=== PATIENT | female | born 1980 | race Caucasian/White ===

== ENCOUNTER → 2016-05-21 | Outpatient (CLI) | payer OTHER ==
[~2016-05-21] MED LIST: CIPR1TAB11 PO; MULT-506 PO; PANT40TA PO; SERT-234 PO
[2016-05-21 12:12] LABS: BASO % 0.2 %; BASO ABS # 0.01 K/uL (0-0.2); COMPLETE YES; EOS % 1.9 %; HEMATOCRIT 38.8 % (37-47); IG% 0.2 %; LYMPH % 27.3 %; LYMPH ABS # 1.61 K/uL (1.2-3.4); MEAN CELL VOLUME 86.2 fL (80-100); MEAN CORPUSCULAR HEMOGLOBIN 28.4 pg (25-34); MEAN PLATELET VOLUME 10.3 fL (7.4-10.4); MONO % 8.7 %; NEUT % 61.7 %; PLATELET COUNT 325 K/uL (130-400); WHITE BLOOD COUNT 5.89 K/uL (4.8-10.8)
[2016-05-21 12:20] LABS: ALT/SGPT 19 U/L (12-78); BLOOD UREA NITROGEN 9 mg/dl (7-18); BUN/CREATININE RATIO 16.5 (10-20); CALCIUM 9.2 mg/dl (8.5-10.1); CARBON DIOXIDE 27 mmol/L (21-32); CHLORIDE 103 mmol/L (98-107); CREATININE 0.52 mg/dl (0.60-1.20); GLUCOSE 84 mg/dl (70-99); POTASSIUM 3.9 mmol/L (3.5-5.1); SODIUM 137 mmol/L (136-145)
[2016-05-21 12:22] LABS: ALB/GLOB RATIO 1.1 (0.9-2); ALKALINE PHOSPHATASE 91 U/L (45-117); AST/SGOT 16 U/L (15-37)
[2016-05-26 06:30] LABS: IGA SERUM 193 mg/dL (81-463); TIS TRANS IGA 1 U/mL (<4)
== END | disposition home or self-care (01) ==
LOC: C.LAB1850 10:55
PROVIDERS: ATTEND Registered Nurse
DX: R19.4 Change in bowel habit (principal); R74.8 Abnormal levels of other serum enzymes; R10.31 Right lower quadrant pain

== ENCOUNTER → 2016-05-24 | Outpatient (CLI) | payer OTHER ==
--- NOTE | 2016-05-24 11:59 | DIAGNOSTIC IMAGING REPORT ---
ABDOMEN COMPLETE (US) CLINICAL HISTORY: Dominant bloating, change in bowel habits. Right lower quadrant abdominal pain COMPARISON STUDY: 08/27/2015 FINDINGS: There is slight increase in hepatic echogenicity, finding which may indicate hepatic steatosis. No focal hepatic masses are visualized. The spleen measures 10.8 cm in length. No splenic masses are visualized. The gallbladder surgically absent. The pancreas appears sonographically normal. The right kidney measures 9.6 cm in length. The left kidney measures 9.9 cm in length. No focal renal masses are visualized. There is no hydronephrosis. There is no abdominal aortic dilatation. No abnormality IVC are visualized. The common bile duct measures 7 mm. IMPRESSION: Surgically absent gallbladder. 7 mm common bile duct. Possible hepatic steatosis. Electronically signed by: Garry Guillen M.D. 05/24/2016 11:57 AM Dictated Date/Time: 05/24/2016 11:55 AM
== END | disposition home or self-care (01) ==
LOC: C.ULTR 11:13
PROVIDERS: ATTEND Registered Nurse
DX: R14.0 Abdominal distension (gaseous) (principal); R19.4 Change in bowel habit; R74.8 Abnormal levels of other serum enzymes; R10.31 Right lower quadrant pain; Z90.49 Acquired absence of other specified parts of digestive tract

== ENCOUNTER → 2016-06-18 | Outpatient (CLI) | payer OTHER ==
[~2016-06-18] MED LIST changes: +OPTIRAY 320 IV PRN
--- NOTE | 2016-06-18 15:19 | DIAGNOSTIC IMAGING REPORT ---
CT UROGRAM CLINICAL HISTORY: Gross hematuria. COMPARISON STUDY: Abdominal ultrasound dated 05/24/2016. TECHNIQUE: Before and following the IV administration of 93 cc of Optiray 320, CT urogram of the abdomen and pelvis is performed from the lung bases to the proximal femora. Images are reviewed in the axial, sagittal, and coronal planes. IV contrast was administered without complication. CT DOSE: 1783.42 mGycm FINDINGS: Lung bases: The heart is normal in size and without pericardial effusion. There is a 2 mm pulmonary nodule at the right lung base seen on image #75. A 3 mm pleural-based nodule is seen in the right middle lobe on image #27. These are of doubtful significance in this age group. Lung bases are otherwise clear. Liver: The contrast-enhanced liver is normal in size, contour, and attenuation. There is minimal central intrahepatic biliary ductal dilatation. The hepatic veins and portal veins are patent. Gallbladder: Surgically absent noting clips in the gallbladder fossa. Spleen: Normal in size and attenuation. Pancreas: Unremarkable. Adrenal glands: Unremarkable. Kidneys and ureters: The contrast enhanced kidneys are normal in size and without hydronephrosis. There are no renal calculi identified on the unenhanced images. The kidneys enhance and excrete symmetrically. A 1.1 cm cyst is identified in the left upper pole. There is no enhancing renal cortical mass lesion identified. There is no evidence of urothelial lesion within the renal pelvis bilaterally or along the course of either ureter. Abdominal vasculature: The abdominal aorta is normal in course and caliber. Bowel: The small bowel and colon are normal in course and caliber. The appendix is well-visualized and normal. Peritoneum: There is no intraperitoneal free air or abdominal ascites. There is a small fat-containing umbilical hernia. Lymphadenopathy: None. Pelvic viscera: The bladder is normal as visualized. The uterus is surgically absent. There are left ovarian follicles measure up to 3.1 cm. There is trace free fluid in the cul-de-sac. Skeletal structures: No destructive bony lesions are seen. IMPRESSION: 1. Unremarkable CT urogram. 2. There are no acute infectious or inflammatory findings in the abdomen or pelvis. 3. There is trace and likely physiologic free fluid in the cul-de-sac. 4. Additional findings as above. Electronically signed by: Kayden Smith M.D. 06/18/2016 3:17 PM Dictated Date/Time: 06/18/2016 3:11 PM
== END | disposition home or self-care (01) ==
LOC: C.CTS 11:33
PROVIDERS: ATTEND Nurse Practitioner Family
DX: R10.2 Pelvic and perineal pain (principal); R31.0 Gross hematuria; R10.31 Right lower quadrant pain

== ENCOUNTER → 2016-08-24 | Outpatient (CLI) | payer OTHER ==
[~2016-08-24] MED LIST changes: -OPTIRAY 320 IV PRN
== END | disposition home or self-care (01) ==
LOC: C.PATHSPEC 17:08
PROVIDERS: ATTEND Urology
DX: R31.29 Other microscopic hematuria (principal)

== ENCOUNTER → 2017-05-17 | Outpatient (CLI) | payer OTHER ==
[2017-05-17 13:07] LABS: BASO % 0.2 %; BASO ABS # 0.01 K/uL (0-0.2); EOS % 2.7 %; EOS ABS # 0.17 K/uL (0-0.5); HEMATOCRIT 42.6 % (37-47); HEMOGLOBIN 14.4 g/dL (12.0-16.0); LYMPH % 30.3 %; LYMPH ABS # 1.88 K/uL (1.2-3.4); MEAN CORPUSCULAR HEMOGLOBIN 31.1 pg (25-34); MEAN CORPUSCULAR HGB CONC 33.8 g/dl (32-36); MEAN PLATELET VOLUME 9.8 fL (7.4-10.4); MONO % 11.8 %; MONO ABS # 0.73 K/uL (0.11-0.59); NEUT ABS # 3.42 K/uL (1.4-6.5); PLATELET COUNT 267 K/uL (130-400); RED CELL DISTRIBUTION WIDTH CV 13.6 % (11.5-14.5); RED CELL DISTRIBUTION WIDTH SD 45.4 fL (36.4-46.3); WHITE BLOOD COUNT 6.21 K/uL (4.8-10.8)
[2017-05-17 13:55] LABS: ALT/SGPT 28 U/L (12-78); BLOOD UREA NITROGEN 10 mg/dl (7-18); CALCIUM 8.8 mg/dl (8.5-10.1); CARBON DIOXIDE 27 mmol/L (21-32); CREATININE 0.52 mg/dl (0.60-1.20); GLUCOSE 83 mg/dl (70-99); SODIUM 136 mmol/L (136-145)
[2017-05-17 14:06] LABS: ALKALINE PHOSPHATASE 65 U/L (45-117); AST/SGOT 20 U/L (15-37); TOTAL PROTEIN 7.7 gm/dl (6.4-8.2)
== END | disposition home or self-care (01) ==
LOC: C.LABPBG 08:36
PROVIDERS: ATTEND Physician Assistant
DX: R53.83 Other fatigue (principal); E55.9 Vitamin D deficiency, unspecified

== ENCOUNTER → 2017-05-20 | Outpatient (CLI) | payer OTHER ==
--- NOTE | 2017-05-20 14:46 | DIAGNOSTIC IMAGING REPORT ---
ABDOMEN AND PELVIS CT WITHOUT CONTRAST CT DOSE: 537.74 mGy.cm HISTORY: Acute right lower quadrant and periumbilical abdominal pain R10.31 Right lower quadrant abdominal painR10.33 Umbilical pain TECHNIQUE: Multiaxial CT images of the abdomen and pelvis were performed without contrast. A dose lowering technique was utilized adhering to the principles of ALARA. COMPARISON STUDY: CT abdomen and pelvis 06/18/2016. FINDINGS: Minimal subsegmental bibasilar atelectasis/scarring, notably within the inferior segment lingula and right middle lobe. 4 mm solid nodule of the basal right lower lobe appears unchanged and is likely benign. No pneumatosis or pneumoperitoneum identified. Imaged inferior cardiac chambers are unremarkable. Evaluation of the solid abdominal organs is limited without use of IV contrast. Within the limitations of the exam, the liver, spleen, pancreas and adrenal glands are within normal limits. Prior cholecystectomy. Kidneys, ureters and urinary bladder are within normal limits without renal calculi or obstructive uropathy. Prior hysterectomy. Cystic lesion of the left adnexum appears measures up to 3.5 x 3.2 cm, overall cystic changes of the left adnexum have decreased from comparison. Linear hyperattenuating material along the inferior portion of left adnexum is unchanged suggesting postsurgical changes. Aorta is unremarkable without aneurysm. No bulky adenopathy. No bowel obstruction or focal bowel wall thickening. Normal appendix. Soft tissues are within normal limits. Small fat filled periumbilical hernia, diastases 1.2 cm. Bones appear intact. IMPRESSION: 1. No acute intra-abdominal or intrapelvic abnormality identified. Normal appendix. 2. Small fat filled periumbilical hernia. 3. Prior cholecystectomy and hysterectomy. 4. 3.5 cm cystic lesion of the left adnexum suggests ovarian cyst. Electronically signed by: Angel May M.D. 05/20/2017 2:44 PM Dictated Date/Time: 05/20/2017 2:37 PM
== END | disposition home or self-care (01) ==
LOC: C.CTS 14:25
PROVIDERS: ATTEND Physician Assistant
DX: R10.31 Right lower quadrant pain (principal); R10.33 Periumbilical pain

== ENCOUNTER → 2017-10-21 | Outpatient (CLI) | payer OTHER ==
[2017-10-21 14:43] LABS: ALBUMIN 3.5 gm/dl (3.4-5.0); ALKALINE PHOSPHATASE 108 U/L (45-117); ALT/SGPT 87 U/L (12-78); AST/SGOT 26 U/L (15-37); BLOOD UREA NITROGEN 10 mg/dl (7-18); CALCIUM 9.1 mg/dl (8.5-10.1); CARBON DIOXIDE 27 mmol/L (21-32); GLUCOSE 102 mg/dl (70-99); LIPASE 791 U/L (73-393); POTASSIUM 3.6 mmol/L (3.5-5.1); SODIUM 138 mmol/L (136-145); TOTAL PROTEIN 7.5 gm/dl (6.4-8.2)
== END | disposition home or self-care (01) ==
LOC: C.LABPBG 09:41
PROVIDERS: ATTEND Nurse Practitioner Family
DX: E55.9 Vitamin D deficiency, unspecified (principal); K85.90 Acute pancreatitis without necrosis or infection, unspecified